=== PATIENT | male | born 1995 | race Caucasian/White ===

== ENCOUNTER 2018-11-01 12:11 | Emergency (ER) | payer OTHER ==
[2018-11-01] MEDS ORDERED: LIDOCAINE 1% INJ-PF (10 MG/ML) 30 ML SDV INJ ONE (12:39)
--- NOTE | 2018-11-01 12:42 | ER Document Report ---
ED Medical Screen (RME) - General Chief Complaint: Laceration Stated Complaint: RIGHT FOOT LACERATION Time Seen by Provider: 11/01/18 12:33 Notes: Patient is a 22-year-old male who presents to the emergency department with a laceration to the bottom of his right foot. He was paddle boarding and he stepped on a oyster bar around 10:00 this morning. He is up-to-date on his immunizations. Exam: Laceration noted to distal plantar area of right foot, about 3 cm in length. I have greeted and performed a rapid initial assessment of this patient. A comprehensive ED assessment and evaluation of the patient, analysis of test results and completion of medical decision making process will be conducted by an additional ED providers. TRAVEL OUTSIDE OF THE [place] IN LAST 30 DAYS: No - Related Data Allergies/Adverse Reactions: No Known Allergies Allergy (Verified 11/01/18 12:13) Past Medical History - Social History Frequency of alcohol use: None Drug Abuse: None Renal/ Medical History: Denies: Hx Peritoneal Dialysis Physical Exam - Vital signs Vitals: Temp Pulse Resp BP Pulse Ox 97.8 F 57 L 17 125/56 L 98 11/01/18 12:26 11/01/18 12:26 11/01/18 12:26 11/01/18 12:26 11/01/18 12:26 Course - Vital Signs Vital signs: Temp Pulse Resp BP Pulse Ox 97.8 F 57 L 17 125/56 L 98 11/01/18 12:26 11/01/18 12:26 11/01/18 12:26 11/01/18 12:26 11/01/18 12:26
--- NOTE | 2018-11-01 12:48 | ER Document Report ---
ED Wound - General Chief Complaint: Laceration Stated Complaint: RIGHT FOOT LACERATION Time Seen by Provider: 11/01/18 12:33 Mode of Arrival: Wheelchair Information source: Patient TRAVEL OUTSIDE OF THE [place] IN LAST 30 DAYS: No - HPI Patient complains to provider of: Laceration - pt. fell while paddleboarding just [employer] -- cut R foot on oyster shell. Tet- UTD - Related Data Allergies/Adverse Reactions: No Known Allergies Allergy (Verified 11/01/18 12:13) Past Medical History - General Information source: Patient - Social History Smoking Status: Never Smoker Frequency of alcohol use: None Drug Abuse: None Family History: None Patient has suicidal ideation: No Patient has homicidal ideation: No Renal/ Medical History: Denies: Hx Peritoneal Dialysis Review of Systems - Review of Systems Constitutional: No symptoms reported EENT: No symptoms reported Cardiovascular: No symptoms reported Respiratory: No symptoms reported Gastrointestinal: No symptoms reported Musculoskeletal: No symptoms reported Skin: See HPI, Other - laceration -: Yes All other systems reviewed and negative Physical Exam - Vital signs Vitals: Temp Pulse Resp BP Pulse Ox 97.8 F 57 L 17 125/56 L 98 11/01/18 12:26 11/01/18 12:26 11/01/18 12:26 11/01/18 12:26 11/01/18 12:26 - General General appearance: Appears well In distress: None - Extremities Foot: Laceration - there is a 3-4 cm vertical laceration on the plantar aspect of the R foot. Flexor and extensor tendons are intact. N/V intact with FROM Course - Vital Signs Vital signs: Temp Pulse Resp BP Pulse Ox 97.8 F 57 L 17 125/56 L 98 11/01/18 12:26 11/01/18 12:26 11/01/18 12:26 11/01/18 12:26 11/01/18 12:26 Procedures - Laceration/Wound Repair Right Foot Time completed: 13:14 Wound length (cm): 3 Wound's Depth, Shape: Linear Laceration pre-procedure: Sterile drapes applied, Shur-Clens applied Anesthetic type: 1% Lidocaine Volume Anesthetic (mLs): 2 Wound explored: Clean Irrigated w/ Saline (mLs): 500 Wound Debrided: Minimal Wound Repaired With: Sutures Suture Size/Type: 4:0 Number of Sutures: 4 Layer Closure?: No Post-procedure wound care: Sterile dressing applied Discharge - Discharge Clinical Impression: Laceration of foot Qualifiers: Encounter type: initial encounter Laterality: right Qualified Code(s): S91.311A - Laceration without foreign body, right foot, initial encounter Condition: Stable Disposition: HOME, SELF-CARE Instructions: Antibiotic Ointment Protection ([facility]), Laceration Care ([facility]), Prophylactic Antibiotic ([facility]) Additional Instructions: rest, take meds as prescribed,sutures out in 7-10 days, return if worse Prescriptions: Doxycycline Hyclate 100 mg PO BID #20 capsule Referrals: NORMA HUFF MD [ACTIVE STAFF] - Follow up as needed
[2018-11-01 13:27] VITALS: BP 114/67
--- NOTE | 2018-11-01 13:28 | RADIOLOGY REPORT (SQ) ---
EXAM DESCRIPTION: FOOT RIGHT 2 VIEWS COMPLETED DATE/TIME: 11/01/2018 12:52 pm REASON FOR STUDY: stepped on oyster bar/eval foreign body COMPARISON: None. NUMBER OF VIEWS: Two views. TECHNIQUE: AP and lateral radiographic images acquired of the right foot. LIMITATIONS: None. FINDINGS: MINERALIZATION: Normal. BONES: No acute fracture or dislocation. No worrisome bone lesions. JOINTS: No effusions. SOFT TISSUES: No soft tissue swelling. No foreign body. OTHER: No other significant finding. IMPRESSION: No fracture or dislocation of the right foot. No radiopaque foreign body identified. TECHNICAL DOCUMENTATION: JOB ID: [id number] [employer]- All Rights Reserved Reading location - IP/workstation name: [email or web address]
== END 2018-11-01 13:33 | disposition home or self-care (01) ==
LOC: ER 12:11
DX: S91.311A Laceration without foreign body, right foot, initial encounter (principal); W26.9XXA Contact with unspecified sharp object(s), initial encounter; Y93.14 Activity, water aerobics and water exercise
CPT/HCPCS: 94640; 99283; 73620; 12002; J3490